=== PATIENT | female | born 1995 | race Caucasian/White ===

== ENCOUNTER 2017-07-09 06:04 | Emergency (ER) | payer OTHER ==
[~2017-07-09] VITALS: Ht 157.5 cm; Wt 79.4 kg
[2017-07-09 06:11] VITALS: BP 119/72
--- NOTE | 2017-07-09 06:16 | NUR ---
ARRIVAL PT ARRIVED VIA EMS TO ER 2 WITH C/O SEIZURES. PT IS AAOX3. PT DENIES HISTORY OF SEIZURES. PT STATES "I DID 2 LINES OF COKE AND I GUESS I HAD A BAD REACTION TO IT." EDP NOTIFIED OF ARRIVAL.
[2017-07-09 06:25] LABS: BASOPHIL # 0.1 10^3/uL (0.0-0.1); BASOPHIL % 0.4 % (0.0-0.2); EOSINOPHIL # 0.1 10^3/uL (0.0-0.2); HEMOGLOBIN 14.7 g/dL (12.0-15.0); LYMPHOCYTES # 2.1 10^3/uL (1.0-4.8); LYMPHOCYTES % 15.8 % (24.0-44.0); MEAN CELL HGB 27.6 pg (26-34); MEAN CELL HGB CONCENTRATION 33.7 g/dL (33-37); MEAN PLATELET VOLUME 10.5 fL (7.8-11.0); MONOCYTES # 1.2 10^3/uL (0.3-0.8); MONOCYTES % 9.3 % (5.0-12.0); NEUTROPHIL # 9.8 10^3/uL (1.8-7.7); NEUTROPHILS % 73.2 % (41.0-85.0); RED CELL DISTRIBUTION WIDTH 13.8 % (11.5-14.5); WHITE BLOOD CELL 13.4 10^3/uL (4.5-11.0)
[2017-07-09 06:40] LABS: CALCIUM 9.3 mg/dL (8.4-10.5); CARBON DIOXIDE 24.3 mmol/L (20.0-32)
--- NOTE | 2017-07-09 06:51 | ER.PDOC ---
GRANT LINARES MD 07/09/17 0650: General Chief Complaint: Seizure Stated Complaint: SEIZURE Time seen by MD: 06:00 Source: patient Exam Limitations: no limitations History of Present Illness Initial Comments 21 year old white female with seizure episode after snorting coke. Never had similar problems before. No tongue biting Timing/Onset/Duration: Unknown Duration Preceding Symptoms/Context: drug use Character Of Seizures: lost consciousness Motor Activity: shaking all over Post-ictal Symptoms: none Injury: none Past Medical History Medical History: no pertinent history, other Surgical History: no surgical history LMP (females 10-50): 2 months Social History Smoking: non-smoker Alcohol Use: none Drug Use: cocaine Constitutional: no symptoms reported EENTM: no symptoms reported Respiratory: no symptoms reported Cardiovascular: no symptoms reported Gastrointestinal: no symptoms reported Genitourinary: no symptoms reported Musculoskeletal: no symptoms reported Skin: no symptoms reported Psychiatric/Neurological: see HPI Endocrine: no symptoms reported Hematologic/Lymphatic: no symptoms reported Physical Exam General Appearance: alert, no distress EENT: nml eye inspection, PERRL, no nystagmus, nml ENT inspection, no apparent , pharynx nml Neck/Back: neck supple, non-tender Respiratory: no resp distress, breath sounds nml, no evidence of rib injury CVS: reg rate & rhythm, heart sounds nml Abdomen: non-tender, no organomegaly, no distention Skin: color nml, no rash, warm/dry Extremities: non-tender, nml ROM, no pedal edema Neuro/Psych: oriented x 3, speech nml, mood/affect nml Cerebellar: nml tested, nml Romberg Sensorimotor: no motor deficit, no sensory deficit, reflexes nml Results/Orders Results/Orders Laboratory Tests Test 07/09/17 06:15 White Blood Count 13.4 10^3/uL (4.5-11.0) Red Blood Count 5.32 10^6/uL (4.00-5.20) Hemoglobin 14.7 g/dL (12.0-15.0) Hematocrit 43.6 % (36.0-46.0) Mean Corpuscular Volume 82.0 fL (78-100) Mean Corpuscular Hemoglobin 27.6 pg (26-34) Mean Corpuscular Hemoglobin Concent 33.7 g/dL (33-37) Red Cell Distribution Width 13.8 % (11.5-14.5) Platelet Count 247 10^3/uL (150-400) Mean Platelet Volume 10.5 fL (7.8-11.0) Neutrophils (%) (Auto) 73.2 % (41.0-85.0) Lymphocytes (%) (Auto) 15.8 % (24.0-44.0) Monocytes (%) (Auto) 9.3 % (5.0-12.0) Neutrophils # (Auto) 9.8 10^3/uL (1.8-7.7) Lymphocytes # (Auto) 2.1 10^3/uL (1.0-4.8) Monocytes # (Auto) 1.2 10^3/uL (0.3-0.8) Absolute Immature Granulocyte (auto 0.04 10^3 u/L (0-2) Eosinophils % 1.0 % (0.0-5.0) Basophils % 0.4 % (0.0-0.2) Basophils # 0.1 10^3/uL (0.0-0.1) Eosinophil Count 0.1 10^3/uL (0.0-0.2) Sodium Level 140 mmol/L (132-145) Potassium Level 3.6 mmol/L (3.6-5.2) Chloride Level 104.0 mmol/L (96-109) Carbon Dioxide Level 24.3 mmol/L (20.0-32) Anion Gap 15.3 Blood Urea Nitrogen 7 mg/dL (7-18) Creatinine 0.71 mg/dL (0.59-1.40) Estimated GFR () 125.7 (>/=60) BUN/Creatinine Ratio 9.0 Glucose Level 95 mg/dL (70-110) Calcium Level 9.3 mg/dL (8.4-10.5) Total Bilirubin 0.6 mg/dL (0.2-1.0) Aspartate Amino Transf (AST/SGOT) 12 U/L (0-35) Alanine Aminotransferase (ALT/SGPT) 30 U/L (12-78) Alkaline Phosphatase 69 U/L (50-136) Total Protein 7.6 g/dL (6.4-8.2) Albumin 3.9 g/dL (3.4-5.0) Globulin 3.7 Percent Immature Gran (Cell Imm) 0.30 % (0.00-0.50) Departure Disposition: 01 HOME, SELF-CARE Impression: Primary Impression: Convulsions Additional Impressions: Drug withdrawal Cocaine abuse with unspecified cocaine-induced disorder UTI (urinary tract infection) Condition: Stable Patient Instructions: Cocaine Abuse-Brief, Seizure, Adult, Urinary Retention, Acute, Male, [id number] Referrals: MARCIA DONATO (PCP) PRIMARY CARE PROVIDER JUAN NASH MD 07/09/17 0725: General Chief Complaint: Seizure Stated Complaint: SEIZURE Departure Time of Disposition: 07:22 Disposition: 01 HOME, SELF-CARE Impression: Primary Impression: Convulsions Additional Impressions: Drug withdrawal Cocaine abuse with unspecified cocaine-induced disorder UTI (urinary tract infection) Condition: Stable Patient Instructions: Cocaine Abuse-Brief, Seizure, Adult, Urinary Retention, Acute, Male, [id number] Referrals: MARCIA DONATO (PCP) PRIMARY CARE PROVIDER Duration or Time Spent with Pa: 10 GRANT LINARES MD Jul 09, 2017 06:50 JUAN NASH MD Jul 09, 2017 07:25
[2017-07-09 07:13] LABS: HCG URINE PREGNANCY NEGATIVE (NEGATIVE)
[2017-07-09 07:19] LABS: APPEARANCE,URINE CLOUDY (CLEAR); BILIRUBIN,URINE NEGATIVE (NEGATIVE); UA COLOR YELLOW (YELLOW); UROBILINOGEN,URINE NORMAL (NEGATIVE)
[2017-07-09 07:34] VITALS: BP 107/60
[2017-07-09 07:38] VITALS: BP 107/60
== END 2017-07-09 07:34 | disposition home or self-care (01) ==
LOC: ER 06:04
DX: F14.19 Cocaine abuse with unspecified cocaine-induced disorder (principal); N39.0 Urinary tract infection, site not specified
CPT/HCPCS: 36415; 80053; 80307; 81000; 81025; 84146; 85025; 87077; 87086; 87186; 99284